=== PATIENT | female | born 1980 | race Caucasian/White ===

== ENCOUNTER 2016-11-06 12:11 | Emergency (ER) | payer MEDICAID ==
[~2016-11-06] VITALS: Ht 154.9 cm; Wt 63.5 kg
[~2016-11-06 12:11] MED LIST: LEVAQUIN500 MG PO; METFORMIN HCL500 MG; MILK OF MA400 MG/5 M PO; MIRALAX17 GM/DOSE PO; NOVOLIN 70/30 710 M1 SUBQ; NOVOLIN 70100 UNITS/ SUBQ; PROTONIX20 MG PO; PROTONIX40 MG PO; VIBRAMYCIN100 MG PO
[2016-11-06 12:39] VITALS: BP 100/61
--- NOTE | 2016-11-06 14:29 | NUR ---
Patient to bed 08.
[2016-11-06 14:34] VITALS: BP 147/78
--- NOTE | 2016-11-06 14:34 | NUR ---
35F BIB SELF C/O EPIGASTRIC PAIN, PRESSURE, NON-RADIATING, 10/10 X 2 DAYS; PT STATES PAIN D/T HX GASTROPARESIS; PT C/O NAUSEA, BUT DENIES VOMITING/DIARRHEA AT THIS TIME; ABDOMEN SOFT, NON-TENDER, ACTIVE BOWEL SOUNDS X 4 QUADRANTS; PT A&OX4, PERRLA, BL LUNG SOUNDS CLEAR, RR EVEN/UNLABORED, SKIN IS WARM/DRY/INTACT AT THIS TIME; STEADY GAIT; PT RESTING IN BED W/ HOB ELEVATED AND IN LOWEST POSITION; POSITIONED FOR COMFORT; ER MD MADE AWARE OF STATUS. WILL CONTINUE TO MONITOR.
--- NOTE | 2016-11-06 15:00 | NUR ---
Dr. Keith evaluating patient at bedside.
[2016-11-06] MEDS ORDERED: NACL 0.9% 1,000 ML IV ONE (15:05)
[2016-11-06] MEDS ORDERED: MORPHINE SULFATE 4 MG/ML SYR IVP ONE (15:05)
[2016-11-06] MEDS ORDERED: ONDANSETRON 4 MG/2 ML VIAL IVP ONE (15:05)
--- NOTE | 2016-11-06 15:59 | NUR ---
Patient to CT via [facility].
--- NOTE | 2016-11-06 16:25 | NUR ---
Patient back from CT via [facility].
--- NOTE | 2016-11-06 17:55 | NUR ---
WENT TO CHECK ON PT; PT NOT IN GURETTERS; GOWN ON BED, BUT IV CATHETER NOT TO BE FOUND; ER MD DR. CALDERÓN, ARMATURE WINDER REPAIRER NURSE QIAN AND SECURITY NOTIFIED.
--- NOTE | 2016-11-06 17:55 | NUR ---
PT ELOPED FROM FACILITY AT THIS TIME. WENT TO CHECK ON PT; PT NOT IN GURNEY; GOWN ON BED, BUT IV CATHETER NOT TO BE FOUND; ER MD DR. CALDERÓN, SKID WRAPPER NURSE QIAN AND SECURITY NOTIFIED.
--- NOTE | 2016-11-06 18:00 | NUR ---
Note almas in ED - 11/06/16 at 1807 by MEDBARBARA Patient appears to be resting comfortably in bed. Vital Signs within normal limits. Respirations even and unlabored. NO ACUTE DISTRESS NOTED AT THIS TIME; WILL CONTINUE TO MONITOR.
--- NOTE | 2016-11-06 18:14 | NUR ---
CRYOGENICS ENGINEER DIANA CALLED [place] [employer] PER CHARGE NURSE; OFFICER BEING SENT TO PT HOME ON ADDRESS ON FILE.
--- NOTE | 2016-11-06 19:21 | NUR ---
[place] [employer] CALLED BACK; [place] [facility] TO BRING PT TO REMOVE IV; REPORT GIVEN TO MADALYN KINCAID AND CEE MONTGOMERY.
--- NOTE | 2016-11-06 22:00 | NUR ---
Jana LING stated that they found pt and there was no IV in and the pt stated she removed it herself.
== END 2016-11-06 17:55 | disposition left against medical advice (07) ==
LOC: MED 12:11
DX: R10.13 Epigastric pain (principal); R11.0 Nausea; E11.9 Type 2 diabetes mellitus without complications; K21.9 Gastro-esophageal reflux disease without esophagitis; I10 Essential (primary) hypertension; Z88.6 Allergy status to analgesic agent; Z88.8 Allergy status to other drugs, medicaments and biological substances; Z90.49 Acquired absence of other specified parts of digestive tract
CPT/HCPCS: 36415; 74177; 80053; 81001; 81025; 82150; 83605; 83690; 84703; 85025; 96361; 96374; 96375; 99285; J2270; J2405; J7030; Q9967

== ENCOUNTER 2019-03-16 22:13 | Emergency (ER) | payer MEDICAID ==
[~2019-03-16] VITALS: Ht 154.9 cm; Wt 81.2 kg
[~2019-03-16 22:13] MED LIST changes: -LEVAQUIN500 MG PO; +METF-988; -METFORMIN HCL500 MG; -MILK OF MA400 MG/5 M PO; -MIRALAX17 GM/DOSE PO; -NOVOLIN 70/30 710 M1 SUBQ; -NOVOLIN 70100 UNITS/ SUBQ; +PANT20EC PO; -PROTONIX20 MG PO; -PROTONIX40 MG PO; -VIBRAMYCIN100 MG PO
[2019-03-16 22:22] VITALS: BP 133/71
--- NOTE | 2019-03-17 00:19 | NUR ---
PT AMBULATED TO BED 11.
--- NOTE | 2019-03-17 00:32 | NUR ---
PT CAME INTO ER WITH C/O RIGHT LEG PAIN X 6 DAYS. PT STATED SHE FELL AND HURT HER LEG. PT HAS A SMALL ABRASION TO THE RIGHT FOOT. PT HAS SOME ROM, AND IS ABLE TO AMBULATED. PT PAIN LEVEL IS 8/10 AT THIS TIME. PT IS ALERT AND ORIENTED X4. ERMDMADE AWARE OF STATUS. SAFETY MEASURES IN PLACE.
--- NOTE | 2019-03-17 00:37 | NUR ---
PT AMBULATED TO THE RESTROOM
--- NOTE | 2019-03-17 01:18 | NUR ---
PT TAKEN TO XRAY VIA WC.
--- NOTE | 2019-03-17 01:28 | NUR ---
PT RETURNED FROM XRAY.
--- NOTE | 2019-03-17 01:30 | NUR ---
PT MOVED TO CHAIR D.
--- NOTE | 2019-03-17 02:00 | NUR ---
PT SLEEPING IN CHAIR WITH VSS. SKIN PINK, WARM, DRY. BREATHING EVEN, UNLABORED.
--- NOTE | 2019-03-17 03:45 | NUR ---
PT MOVED TO BED 12.
[2019-03-17] MEDS ORDERED: ACETAMINOPHEN EXTRA STRENGTH 500 MG TAB PO ONE (04:05)
--- NOTE | 2019-03-17 04:28 | NUR ---
DR. LANDIS EVALUATING AT BEDSIDE.
[2019-03-17] MEDS ORDERED: MORPHINE SULFATE 4 MG/ML SYR IVP ONE (05:05)
--- NOTE | 2019-03-17 05:40 | NUR ---
RN X 2 ATTEMPTED PIV ON PT.
--- NOTE | 2019-03-17 05:45 | NUR ---
EMT PERFORMING EKG AT BEDSIDE.
--- NOTE | 2019-03-17 05:45 | NUR ---
EKG PERFORMED AT BEDSIDE
--- NOTE | 2019-03-17 05:52 | NUR ---
PT TAKEN TO CT VIA [facility].
--- NOTE | 2019-03-17 06:30 | NUR ---
PT RETURNED FROM RADIOLOGY VIA [facility].
[2019-03-17] MEDS ORDERED: APIX5TAB PO (06:45)
[2019-03-17] MEDS ORDERED: LISI10TA11 PO (06:45)
[2019-03-17] MEDS ORDERED: EMPA25TA PO (06:47)
[2019-03-17] MEDS ORDERED: GLIP10TE PO (06:48)
[2019-03-17] MEDS ORDERED: SIMV40TA1 PO (06:48)
[2019-03-17] MEDS ORDERED: DONE10TA10 PO (06:51)
[2019-03-17] MEDS ORDERED: MEMA5TAB PO (06:56)
[2019-03-17] MEDS ORDERED: ASPI81EC98 PO (06:56)
[2019-03-17] MEDS ORDERED: FERR325E14 PO (06:56)
--- NOTE | 2019-03-17 07:00 | NUR ---
PIV ESTABLISHED IN RIGHT HAND WITH 22 G.
--- NOTE | 2019-03-17 07:11 | NUR ---
LABS DRAWN BY RN AT BEDSIDE.
--- NOTE | 2019-03-17 07:25 | NUR ---
MEDICATED FOR BLE PAIN---CURRENTLY RESTING WITH OU CLOSED, NO S/S RESP DISTRESS NO GRIMACE NO MOAN--WILL CONTINUE TO OBSERVE FOR PAIN CONTROL
[2019-03-17 08:12] LABS: BASOPHILS % (AUTO) 0.5 % (0.0-2.0); EOSINOPHILS # (AUTO) 0.1 K/uL (0-0.4); EOSINOPHILS % (AUTO) 1.5 % (0.0-4.0); HEMATOCRIT 27.6 % (36-48); HEMOGLOBIN 9.1 g/dL (12.0-16.0); LYMPHOCYTES # (AUTO) 1.7 K/uL (2.5-16.5); LYMPHOCYTES % (AUTO) 24.2 % (20.5-51.1); MEAN CORPUSCULAR HEMOGLOBIN 30 pg (27-31); MEAN CORPUSCULAR HGB CONC 33 g/dL (33-37); MEAN CORPUSCULAR VOLUME 90.3 fL (80-94); MONOCYTES # (AUTO) 0.3 K/uL (0.8-1.0); MONOCYTES % (AUTO) 3.9 % (1.7-9.3); NEUTROPHILS % (AUTO) 69.9 % (42.2-75.2); PLATELET COUNT (AUTO) 429 K/uL (140-450); RED BLOOD CELL COUNT(AUTO) 3.05 MIL/uL (4.20-5.40); RED CELL DISTRIBUTION WIDTH 13.3 % (11.6-13.7); WHITE BLOOD COUNT (AUTO) 7.1 K/uL (4.8-10.8)
[2019-03-17 08:17] LABS: ALBUMIN 3.5 g/dL (3.4-5.0); ANION GAP 15.2 (8-16); CARBON DIOXIDE 26.2 mmol/L (21-32); CREATININE 1.1 mg/dL (0.6-1.3); POTASSIUM 4.4 mmol/L (3.5-5.1); TOTAL BILIRUBIN 0.3 mg/dL (0.0-1.0)
--- NOTE | 2019-03-17 08:19 | NUR ---
BLOOD SAMPLE COLLECTED AND SENT TO LAB--PT UP TO RESTROOM
--- NOTE | 2019-03-17 08:36 | NUR ---
RLE YADI BANDAGED--CRUTCH TRAINING GIVEN
[2019-03-17 09:40] VITALS: BP 117/71
--- NOTE | 2019-03-17 09:40 | NUR ---
Patient discharged with v/s stable. Written and verbal after care instructions given and explained. Patient alert, oriented and verbalized understanding of instructions. Ambulatory with steady gait. All questions addressed prior to discharge. ID band removed. Patient advised to follow up with PMD. Rx of [place] given. Patient educated on indication of medication including possible reaction and side effects. Opportunity to ask questions provided and answered.
== END 2019-03-17 09:40 | disposition home or self-care (01) ==
LOC: MED 22:13
DX: S82.831A Other fracture of upper and lower end of right fibula, initial encounter for closed fracture (principal); D64.9 Anemia, unspecified; W19.XXXA Unspecified fall, initial encounter; Y93.89 Activity, other specified; Y92.89 Other specified places as the place of occurrence of the external cause; Y99.8 Other external cause status
CPT/HCPCS: 36415; 70450; 72072; 72110; 72125; 73562; 73590; 73610; 80053; 84484; 85025; 93005; 96374; 99284; J2270